=== PATIENT | male | born 1940 | race Caucasian/White ===

== ENCOUNTER → 2016-12-05 | Day surgery (SDC) | payer MEDICARE, OTHER ==
[~2016-12-05] VITALS: Ht 172.7 cm; Wt 76.2 kg
[~2016-12-05] MED LIST: APRESOLINE10 MG PO; CARBIDOPA-LEVO1 EAC4 PO; COLACE100 MG PO; COREG12.5 MG PO; DRISDOL 5050000 UNIT PO; ELIQUIS5 MG PO; FERROUS SULFAT PO; FLOMAX0.4 MG PO; IMDUR30 MG PO; KLONOPIN0.5 MG PO; LANTUS SOL100 UNIT/1 SUB-Q; LEVOTHROID (S100 MCG PO; LIPITOR40 MG PO; NEURONTIN100 MG PO; OMEPRAZOLE40 MG PO; PLAVIX75 MG PO; REGLAN5 MG PO; REMERON15 MG PO; SODIUM BICARBO650 MG PO; VITAMIN B-121000 MCG PO
--- NOTE | ~2016-12-05 | OR ---
PATIENT'S NAME: SHAHEED PINZON [facility] AGE: 76 Y [address] ROOM: [place] [id number] LOCATION: [facility] [place] ADMIT DATE: 12/05/2016 OR/Procedure Report DISCHARGE DATE: FAMILY PHYSICIAN: Kirby Jacobs MD ATTENDING PHYSICIAN: CHINMAY MONIQUE SURGEON: Chinmay Monique MD WOOD GOUGER: DATE OF PROCEDURE: 12/05/2016 PREOPERATIVE DIAGNOSIS: End-stage renal disease. POSTOPERATIVE DIAGNOSIS: End-stage renal disease. PROCEDURE: Right arm brachiobasilic arteriovenous fistula. RADIO MAINTAINER: Anette Hummel, nurse practitioner. She provided retraction, help, as well as closure of the wound. ANESTHESIA: General. ESTIMATED BLOOD LOSS: 10 mL. OPERATIVE FINDINGS: Good thrill and bruit in the basilic fistula. Strong radial and ulnar signal at the end of the case. DESCRIPTION OF PROCEDURE: The patient was brought to the operating room, placed supine on the operating table, placed under general anesthesia, prepped and draped in a sterile manner. Preoperative time-out was performed. The patient received preoperative antibiotics. We made a standard incision 2 cm proximal to the antecubital fossa, dissected down the fascia, incised the fascia in a longitudinal manner. We dissected out the brachial artery in a 360-degree fashion. We then performed a similar maneuver on the basilic vein. We then gave 5000 units of heparin. We clamped proximal and distally the artery. We made an arteriotomy size of 4 mm. We then did a standard 6-0 Prolene anastomosis from the vein to the artery. We removed the clamps. There was excellent flow into the fistula, which was confirmed using Doppler. There was strong radial and ulnar signal. Heparin was reversed using protamine. Deep layers were closed with 2-0 and 3-0 Vicryl. Skin was closed with running 4-0 Monocryl. The patient tolerated the procedure well and transferred to recovery room and home later that day. CHINMAY MONIQUE MD PATIENT'S NAME: SHAHEED PINZON [facility] AGE: 76 Y [address] ROOM: [place] [id number] LOCATION: [facility] [place] ADMIT DATE: 12/05/2016 OR/Procedure Report DISCHARGE DATE: FAMILY PHYSICIAN: Kirby Jacobs MD ATTENDING PHYSICIAN: CHINMAY MONIQUE/jeffersonl /[id number] d: 12/05/163 t: 12/09/16 1627, OPERATIVE SUMMARY
[2016-12-05 11:03] LABS: BASOPHIL % 0.2 %; EOSINOPHIL # 0.2 K/uL (0.0-0.5); EOSINOPHIL % 4.2 %; HEMATOCRIT 26.5 % (37.0-53.0); HEMOGLOBIN 8.8 g/dL (11.0-16.0); IMMATURE GRANULOCYTE % 0.2 %; LYMPHOCYTE # 1.3 K/uL (0.8-4.0); LYMPHOCYTE % 24.3 %; MCH 33.2 pg (27.0-34.0); MCHC 33.2 gm/dL (32.0-36.5); MONOCYTE # 0.4 K/uL (0.0-1.0); MPV 11.1 fl (9.4-12.4); NEUTROPHIL # (ANC) 3.4 K/uL (1.4-9.0); NEUTROPHIL % 64.1 %; NRBC % 0 /100WBC (0-0.00); PLATELET COUNT 129 K/uL (150-450); RBC 2.65 M/uL (3.50-5.50); RDW-CV 13.1 % (11.9-14.6); WBC 5.3 K/uL (4.0-11.0)
[2016-12-05 11:24] LABS: ALBUMIN 3.4 gm/dL (3.5-5.0); CALCIUM 8.7 mg/dL (8.5-10.5); CREATININE 3.8 mg/dL (0.6-1.3); POTASSIUM 4.4 mMol/L (3.7-5.1); TOTAL BILIRUBIN 0.4 mg/dL (0.0-1.5)
[2016-12-05 11:34] LABS: ANION GAP 12.4 (10.0-19.0)
== END | disposition disaster alternative care site (69) ==
LOC: GPOC 11-28 10:00 → GSDC 09:53 → GPOC 10:00
PROVIDERS: Surgery Vascular Surgery
PROC: 03170ZD Bypass Right Brachial Artery to Upper Arm Vein, Open Approach (ICD-10-PCS; principal; 2016-12-05)
DX: I12.0 Hypertensive chronic kidney disease with stage 5 chronic kidney disease or end stage renal disease (principal); E11.22 Type 2 diabetes mellitus with diabetic chronic kidney disease; N18.6 End stage renal disease; E78.5 Hyperlipidemia, unspecified; Z88.2 Allergy status to sulfonamides; F32.9 Major depressive disorder, single episode, unspecified; K21.9 Gastro-esophageal reflux disease without esophagitis; N40.0 Benign prostatic hyperplasia without lower urinary tract symptoms; E03.9 Hypothyroidism, unspecified; M19.90 Unspecified osteoarthritis, unspecified site; G40.909 Epilepsy, unspecified, not intractable, without status epilepticus; Z87.891 Personal history of nicotine dependence; Z95.1 Presence of aortocoronary bypass graft; Z90.49 Acquired absence of other specified parts of digestive tract; Z79.899 Other long term (current) drug therapy; Z98.890 Other specified postprocedural states
CPT/HCPCS: J0690; J1644; J2001; J2405; J2720; J7030